=== PATIENT | male | born 1995 | race Caucasian/White ===

== ENCOUNTER 2017-07-05 14:21 | Emergency (ER) | payer SELFPAY ==
--- NOTE | ~2017-07-05 | ER ---
PATIENT'S NAME: MARITZA ORTEGA [facility] AGE: 22 Y [address] ROOM: [place] [id number] LOCATION: [facility] ADMIT DATE: 07/05/2017 ER/Outpatient Report DISCHARGE DATE: 07/05/2017 FAMILY PHYSICIAN: PHYSICIAN, NO ATTENDING PHYSICIAN: Yair Watt Time of Arrival: Time of Evaluation: Admission date and time documented in the medical record. I saw the patient at 1430 hours. CHIEF COMPLAINT: Left wrist pain. HISTORY OF PRESENT ILLNESS: The patient is a 22-year-old male, who comes in with a left wrist pain that started on of this past week. The patient does do a lot of lifting, pushing, and pulling at his work. Unloads supplies from trucks. He was using a anca most of time, pushing up and then going down the ramps. Had increased pain on Thursday and had to leave work because of the discomfort about a mcc through his shift. He presents today for evaluation. He has a previous history of fracture of the left wrist. At this incident, he did not fall or have any known injury. He has not had any fever, chills, or sweats. Minimal of any swelling. He has had no redness, red streaking. He was not hit in the wrist. No other joint or muscle swelling, redness, or pain. Neurovascularly intact. HOME MEDICATIONS: None. ALLERGIES: NONE. SOCIAL HISTORY: The patient smokes a pack of cigarettes per day. Occasional intake of alcohol. SIGNIFICANT PAST MEDICAL HISTORY: Negative except for tobacco abuse. PAST SURGICAL HISTORY: Operations: Tonsillectomy. REVIEW OF SYSTEMS: All systems were reviewed by me are negative with the exception of those discussed in the history of the present illness. PATIENT'S NAME: MARITZA ORTEGA [facility] AGE: 22 Y [address] ROOM: [place] [address] LOCATION: [facility] ADMIT DATE: 07/05/2017 ER/Outpatient Report DISCHARGE DATE: 07/05/2017 FAMILY PHYSICIAN: PHYSICIAN, NO ATTENDING PHYSICIAN: Yair Watt PHYSICAL EXAMINATION: VITAL SIGNS: Temperature 98.4, tympanic; pulse 86; respiratory rate 16; blood pressure 133/80; and O2 saturation on room air is 97%. MUSCULOSKELETAL: On examination of the left wrist, there is little of any swelling over the dorsal aspect of the left wrist. Tenderness over the dorsal aspect. Range of motion is restricted as far as extension and flexion. No open wounds. NEUROVASCULAR: Neurovascularly intact. Pulse intact. There is no redness. No red streaking. IMAGING DATA: X-ray showed no fracture or dislocation. We will review x-ray with the radiologist. IMPRESSION: Left wrist pain, etiology uncertain. Most likely a sprain wrist with inflammatory changes. PLAN: The patient was placed in a left cock-up wrist splint. Discharged to home. Observation. Activity as tolerated. Ice, elevation intermittently as needed. Aleve 2 orally 2 times a day with food for 7 to 14 days. Follow up with personal physician as needed. Discussion ensued with the patient concerning my findings and recommendations, he understands. MD GRANT BEE/modl /[id number] d: 07/05/171953 t: 07/06/1710, OUTPATIENT REPORT
== END 2017-07-05 15:28 | disposition disaster alternative care site (69) ==
LOC: GMED 14:21
PROC: 2W3FX1Z Immobilization of Left Hand using Splint (ICD-10-PCS; principal; 2017-07-05)
DX: M25.532 Pain in left wrist (principal); F17.210 Nicotine dependence, cigarettes, uncomplicated; Z90.89 Acquired absence of other organs; X50.0XXA Overexertion from strenuous movement or load, initial encounter